=== PATIENT | female | born 1990 | race African-American/Black ===

== ENCOUNTER 2016-11-01 23:44 | Emergency (ER) | payer OTHER ==
[2016-11-01 23:56] VITALS: BP 122/86
--- NOTE | 2016-11-02 00:14 | ED INFLUENZA/URI COMPLAINT ---
History of Present Illness General Chief Complaint: General Adult Stated Complaint: DUBOIS EVERYDAY X'S 1 MTH, CHILLS,STIFF NECK,CONFUSED Source: patient, family Exam Limitations: no limitations Vital Signs & Intake/Output Vital Signs & Intake/Output Vital Signs Date Time Temp Pulse Resp B/P B/P Pulse O2 O2 Flow FiO2 Mean Ox Delivery Rate 11/01 2356 97.1 88 16 122/86 96 Room Air Room Air Allergies Coded Allergies: NO KNOWN ALLERGIES (08/09/12) Reconcile Medications Amoxicillin/Potassium Clav (Augmentin 875-125 Tablet) 875 MG-125 MG TABLET 1 TAB PO BID sinusitis Ibuprofen 600 MG TABLET 1 TAB PO TID PRN pain with food Oxymetazoline HCl (Afrin) 0.05 % SPRAY 1 SPRAY IN TID PRN SINUS CONGESTION X 3 DAYS MAX Triage Note: 26yo FEMALE TO TRIAGE W/CO OVERALL WEAKNESS, CHILLS, DUBOIS X 1 MONTH. "I JUST FEEL SICK" Triage Nurses Notes Reviewed? yes Onset: Gradual Duration: week(s):, waxing and waning Timing: recent history Severity: moderate Prior Episodes/Possible Cause: no prior episodes Modifying Factors: Worsens With: other (RIGHT SINUS SWELLING). Associated Symptoms: RIGHT SINUS SWELLING : No Patient currently breastfeeds: No HPI: 26 yo woman with 1 month of intermittent right sided facial swelling, occasional headache, occasional fever and headache. She notes, "When I take a selfie, I see that the right side of my face seems swollen." She notes occasional foul taste in the back of her mouth when she awakens. She is otherwise well. Past History Travel History Traveled to [place] past 21 day No Medical History Any Pertinent Medical History? see below for history Surgical History Surgical History: none Psychosocial History What is your primary language Croatian Tobacco Use: Never used Family History Hx Contributory? No Review of Systems Review of Systems Constitutional: Reports: no symptoms. EENTM: Reports: no symptoms. Respiratory: Reports: no symptoms. Cardiovascular: Reports: no symptoms. GI: Reports: no symptoms. Genitourinary: Reports: no symptoms. Musculoskeletal: Reports: no symptoms. Skin: Reports: no symptoms. Neurological/Psychological: Reports: no symptoms. Hematologic/Endocrine: Reports: no symptoms. Immunologic/Allergic: Reports: no symptoms. All Other Systems: Reviewed and Negative Physical Exam Physical Exam General Appearance: well developed/nourished, mild distress Head: atraumatic, normal appearance Eyes: Bilateral: normal appearance. Ears, Nose, Throat: normal ENT inspection, RIGHT SIDED SINUS TENDERNESS TO PALPATION. Neck: normal inspection, supple, full range of motion Respiratory: normal breath sounds, chest non-tender, no respiratory distress, quiet respiration, lungs clear Cardiovascular: regular rate/rhythm Gastrointestinal: normal bowel sounds, soft, non-tender, no organomegaly Back: normal inspection, normal range of motion Extremities: normal inspection, normal capillary refill, normal range of motion, no edema Neurologic/Psych: no motor/sensory deficits, awake, alert, oriented x 3 Skin: intact, normal color, warm/dry Core Measures Severe Sepsis Present: No Septic Shock Present: No Progress Differential Diagnosis: pharyngitis, sinusitis, VIRAL SYNDROME VS OTHER. Plan of Care: RX FOR AUGMENTIN, INSTRUCTED PT TO USE AFFRIN. ADVOCATED CLOSE FOLLOW UP WITH PMD. Initial ED EKG: none Departure Departure Disposition: HOME OR SELF CARE Condition: Stable Clinical Impression Primary Impression: Sinusitis Secondary Impressions: Headache Referrals: PATIENT HAS NO PRIMARY CARE DR (PCP/Family) Departure Forms: Customer Survey General Discharge Information Prescriptions: Current Visit Scripts Amoxicillin/Potassium Clav (Augmentin 875-125 Tablet) 1 TAB PO BID #20 TAB Ibuprofen 1 TAB PO TID PRN pain #30 TAB with food Oxymetazoline HCl (Afrin) 1 SPRAY IN TID PRN SINUS CONGESTION #1 SPRAY X 3 DAYS MAX
[2016-11-02] MEDS ORDERED: AUGMENTIN 875-1 EACH PO (00:15)
[2016-11-02] MEDS ORDERED: AFRIN30 ML IN (00:15)
[2016-11-02] MEDS ORDERED: IBUPROFEN600 M1 PO (00:15)
== END 2016-11-02 00:19 ==
LOC: ERH 23:44
DX: J32.9 Chronic sinusitis, unspecified (principal)

== ENCOUNTER 2016-11-14 20:09 | Emergency (ER) | payer OTHER ==
[~2016-11-14] VITALS: Ht 162.6 cm; Wt 52.6 kg
[~2016-11-14 20:09] MED LIST: AFRIN30 ML IN; AUGMENTIN 875-1 EACH PO; IBUPROFEN600 M1 PO
--- NOTE | 2016-11-14 20:56 | ED THROAT/DENTAL COMPLAINT ---
History of Present Illness General Chief Complaint: Sore Throat, Dental Pain Stated Complaint: SORE THROAT, R SIDE FACE NUMBNESS PER PT Source: patient Exam Limitations: no limitations Vital Signs & Intake/Output Vital Signs & Intake/Output Vital Signs Date Time Temp Pulse Resp B/P B/P Pulse O2 O2 Flow FiO2 Mean Ox Delivery Rate 11/14 2338 98.1 78 18 131/87 100 Room Air 11/14 2031 97.9 90 16 117/82 98 Room Air ED Intake and Output 11/15 0000 11/14 1200 Intake Total Output Total Balance Patient 116 lb Weight Weight Estimated Measurement Method Allergies Coded Allergies: NO KNOWN ALLERGIES (08/09/12) Reconcile Medications No Known Home Medications Triage Note: RECEIVED 26 YO FEMALE SEEN HERE ONE WEEK AGO FOR R FACIAL NUMBNESS, STIFF NECK, NO APPETITE. PT REPORTS SHE NOW HAS WHITE SPOTS ON THE BACK OF HER NECK. NO C/O SORE THROAT.PT REPORTS NOT FEELING ANY BETTER. Triage Nurses Notes Reviewed? yes Onset: Gradual Duration: week(s): Timing: recent history Severity: moderate No Modifying Factors: none : No Patient currently breastfeeds: No HPI: 26YO female presents to emergency department c/o white spots on her tonsils x 2 days. She states that she has had a constellation of symptoms over the past two weeks including Rt facial numbness, nasal congestion, dry cough, weight loss of about 15lbs,SAID SHE WENT DOWN TO 106LBS IN APPROX 1 MONTH, fevers, chills, headaches, anorexia, malaise, arthralgias, nausea, diarrhea, left armpit pain, and right ear pain. She was seen here 11/01 for these symptoms and was treated with 10 days of PO Augmentin. She states that her symptoms remained constant despite antibiotic therapy. She denies sore throat, skin rash, tick or insect bite, sick contacts, chest pain, dyspnea. She has gotten bloodwork multiple times with her PCP including tests for HIV and her bloodwork has all come back "normal". (OSVALDO GONZALES,RITIKA) Past History Travel History Traveled to [place] past 21 day No Medical History Any Pertinent Medical History? none Neurological: NONE EENT: NONE Cardiovascular: NONE Respiratory: NONE Gastrointestinal: NONE Hepatic: NONE Renal: NONE Musculoskeletal: NONE Psychiatric: NONE Endocrine: NONE Blood Disorders: NONE Cancer(s): NONE Surgical History Surgical History: none Psychosocial History What is your primary language Bulgarian Tobacco Use: Never used Family History Hx Contributory? No (RITIKA DEWITT) Review of Systems Review of Systems Constitutional: Reports: chills, fever, malaise, unexplained weight loss. Comments Review of systems: See HPI, All other systems negative. Constitutional, +chills +fever + about 15lb weight loss HEENT: No visual changes no sore throat +congestion Cardiovascular: No chest pain ,palpitation , orthopnea or ankle swelling Skin, no jaundice no rashes Respiratory: No dyspnea +cough No sputum or hemoptysis GI: +nausea no vomiting : No dysuria No hematuria Muscle skeletal: +arthralgias, no back pain, no neck pain, Neurologic: +R sided facial numbness, +headache no confusion Psych: No stress anxiety or depression,. Heme/endocrine: No bruising no bleeding no polyuria or polydipsia Immunology: No splenectomy or history of AIDS (RITIKA DEWITT) Physical Exam Physical Exam General Appearance: well developed/nourished, no apparent distress, alert, awake Mouth/Throat: White plaques on left tonsil, no erythema, uvula midline Comments: Well-developed well-nourished person in no acute distress HEENT: extraocular motion intact, no nystagmus. Pupils equally round and reactive to light and accommodation. Nose is atraumatic. External auditory canal and Tympanic membranes clear. White plaques on left tonsil, no erythema, uvula midline. No swelling or edema. No Sinus tenderness Neck: Supple, no lymphadenopathy, normal range of motion without pain or tenderness, NO MENINGEAL SIGNS Back: Nontender,. Full range of motion Cardiovascular: Regular rate and rhythms no murmurs rubs or gallops, normal JVP Respiratory: Chest nontender. No respiratory distress.breath sounds clear to auscultation bilaterally Abdomen: Soft, nontender nondistended, no appreciable organomegaly. Normal bowel sounds. No ascites Extremity: No edema, normal and equal pulses. Neuro: Alert oriented x3, motor normal, Sensation at right cheek and jaw diminished compared to left side, CN 2-12 INTACT EXCEPT FOR SENSATION OF CRANIAL NERVE 5. Skin: No appreciable rash on exposed skin, skin is warm and dry. Psych: Mood and affect is normal, memory and judgment is normal. Core Measures ACS in differential dx? No Severe Sepsis Present: No Septic Shock Present: No (OSVALDO GONZALES,RITIKA) Progress Differential Diagnosis: willie-tonsillar abscess, strep pharyngitis, viral illness , thyroid disorder, anxiety Plan of Care: Orders Procedure Date/time Status URINE 11/14 2137 Complete URINALYSIS 11/14 2137 Complete THYROID STIMULATING HORMONE 11/14 2137 Complete T3 UPTAKE (THYROXINE BIND CAP) 11/14 2137 Complete LYME TITRE 11/14 2137 Active FREE T4 11/14 2137 Complete COMPREHENSIVE METABOLIC PANEL 11/14 2137 Complete CBC WITHOUT DIFFERENTIAL 11/14 2137 Complete THROAT CULTURE W/QUICK STREP 11/14 2032 Active Laboratory Tests 11/14/160: Urine Color YEL, Urine Clarity CLEAR, Urine pH 6.0, Ur Specific [place] 1.020, Urine Protein NEG, Urine Ketones NEG, Urine Nitrite NEG, Urine Bilirubin NEG, Urine Urobilinogen 0.2, Ur Leukocyte Esterase NEG, Ur Microscopic EXAM NOT REQUIRED, Urine Hemoglobin NEG, Urine Glucose NEG, Urine Test NEGATIVE 11/14/162200: Anion Gap 11, Estimated GFR > 60, BUN/Creatinine Ratio 11.7, Glucose 79, Calcium 9.6, Total Bilirubin 0.3, AST 24, ALT 35, Alkaline Phosphatase 51, Total Protein 7.0, Albumin 4.3, Globulin 2.7, Albumin/Globulin Ratio 1.6, TSH 0.861, Free T4 0.81, Thyroxine Binding Indx 36.0, CBC w Diff NO MAN DIFF REQ, RBC 4.32, MCV 91.5, MCH 30.5, RDW 12.8, MPV 7.7, Gran % 53.7, Lymphocytes % 35.8, Monocytes % 8.8, Eosinophils % 1.3, Basophils % 0.4, Absolute Granulocytes 3.7, Absolute Lymphocytes 2.5, Absolute Monocytes 0.6, Absolute Eosinophils 0.1, Absolute Basophils 0, PUBS MCHC 33.4, Lyme Disease Antibody Pending Patient is lying comfortably in bed, she is in no acute distress, her vital signs remain stable. Her physical exam show nonspecific tonsillar exudates, rapid strep test was normal. Due to constellation of symptoms blood work including thyroid and lyme titer ordered. Bloodwork WNL at this time. Patient was given a referral for a PCP to follow up for further work up and instructed to take motrin as prescribed, increase fluids, and rest as possible viral illness. Suspicion for mono is low as this time given no LAD, no elevated LFTs, no sore throat, no swollen tonsils. (RITIKA DEWITT) Comments: WEIGHED IN THE ER: 119 IBS. (RITIKA DEWITT) Departure Departure Time of Disposition: 2341 Disposition: HOME OR SELF CARE Condition: Stable Clinical Impression Primary Impression: Tonsillar exudate Secondary Impressions: Fatigue Qualifiers: Fatigue type: unspecified Qualified Code: R53.83 - Other fatigue Referrals: AARON ABBOTT MD PATIENT HAS NO PRIMARY CARE DR (PCP/Family) Additional Instructions: Take Motrin as prescribed as needed for ache and pains. Increase fluid intake, rest. Follow up with , call to make an appointment this week. Return with any worsening symptoms or concerns. Departure Forms: Customer Survey General Discharge Information Prescriptions: Current Visit Scripts No Known Home Medications (RITIKA DEWITT) PA/MONOMER RECOVERY OPERATOR Co-Sign Statement Statement: ED Attending supervision documentation- I saw and evaluated the patient. I have also reviewed all the pertinent lab results and diagnostic results. I agree with the findings and the plan of care as documented in the PA's/MONOMER RECOVERY OPERATOR's documentation. x I have reviewed the ED Record and agree with the PA's/MONOMER RECOVERY OPERATOR's documentation. [] Additions or exceptions (if any) to the PAs/MONOMER RECOVERY OPERATOR's note and plan are summarized below: [] (WALKER PINEDA,ZAIN)
[2016-11-14 22:07] LABS: ABSOLUTE BASOPHIL COUNT 0 /CUMM (0.0-0.2); ABSOLUTE EOSINOPHIL COUNT 0.1 /CUMM (0.0-0.7); ABSOLUTE GRANULOCYTE CT 3.7 /CUMM (1.4-6.5); ABSOLUTE LYMPH COUNT 2.5 /CUMM (1.2-3.4); ABSOLUTE MONOCYTE COUNT 0.6 /CUMM (0.10-0.60); BASOPHIL % 0.4 % (0.0-2.0); EOSINOPHIL % 1.3 % (0-5); GRANULOCYTE % 53.7 % (42.2-75.2); HEMATOCRIT 39.5 % (37-47); MEAN CORPUSCULAR HGB 30.5 PG (27.0-31.0); MEAN CORPUSCULAR HGB CONC 33.4 G/DL (33.0-37.0); MEAN CORPUSCULAR VOLUME 91.5 FL (81.0-99.0); MEAN PLATELET VOLUME 7.7 FL (7.4-10.4); PLATELET COUNT 275 /CUMM (130-400); RBC DISTRIBUTION WIDTH 12.8 % (11.5-14.5); RED BLOOD CELL CT 4.32 /CUMM (4.20-5.40); WHITE BLOOD CELL COUNT 6.9 /CUMM (4.8-10.8)
[2016-11-14 23:38] VITALS: BP 131/87
== END 2016-11-15 00:08 ==
LOC: ERH 20:09
PROVIDERS: Physician Assistant
DX: J35.9 Chronic disease of tonsils and adenoids, unspecified (principal); R53.83 Other fatigue
CPT/HCPCS: 86618; 81003; 81025